=== PATIENT | male | born 1980 | race Caucasian/White ===

== ENCOUNTER → 2020-03-18 13:50 | Outpatient (BNVA) | payer OTHER, SELFPAY | PROVIDERS: Visit Provider Nurse Practitioner Family | DX: Z02.6 Encounter for examination for insurance purposes (principal); J44.0 Chronic obstructive pulmonary disease with (acute) lower respiratory infection; K64.4 Residual hemorrhoidal skin tags | CPT/HCPCS: 80307 ==